=== PATIENT | male | born 1985 | race Caucasian/White ===

== ENCOUNTER → 2019-06-13 | Outpatient (CLI) | payer OTHER ==
[~2019-06-13] MED LIST: DOXYCYCLINE HY100 M3 PO; FLOMAX0.4 MG PO; GENVOYA TABLET1 EACH PO; HYDROCODONE-AP1 EAC6 PO; MEDROLDOSEPACK PO; NOHOMEMEDICATIONS; NORCO 5-325 TA1 EACH PO; ONDANSETRON HCL4 M2 PO; ONE DAILY COMP1 EAC2 PO; PROPECIA1 MG; PROTANDIM; ZOFRAN ODT4 MG PO; ZPAK PO
[2019-06-13 09:31] LABS: PROTIME 9.9 Seconds (9.3-11.4)
[2019-06-13 11:36] LABS: CSF GLUCOSE 60 mg/dL (40-70); CSF PROTEIN 39 mg/dL (15-45)
[2019-06-13 11:48] LABS: CSF CLARITY CLEAR; CSF COLOR COLORLESS; VOLUME 6 ml
[2019-06-13 12:19] LABS: CSF WBC 0 /mm3 (0-10)
[2019-06-13 12:20] LABS: CSF RBC 209 /mm3
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
[2019-06-16 14:09] LABS: CSF VDRL Non Reactive (Non Rea:<1:1)
[2019-06-17 05:07] LABS: SYPHILIS AB Reactive (Non Reactive)
--- NOTE | 2019-06-18 12:42 | EKG ---
[facility] [place] [address] ELECTROCARDIOGRAM REPORT Name: ZAIDA EDWARDS Room #: REG CLI [facility]#: [id number] Admission: 06/13/19 Attend Phys: Rashi Winslow MD Discharge: Date of : 81 Report #: [id number] THIS REPORT FOR: cc: Virgilio Marina MD, Steven A. MD Lundgren,Gael Schofield MD 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 06/13/19 1723 1119 1119 Gael Garland MD, [facility] /EPI
== END ==
LOC: RAD 07:31
PROVIDERS: Radiology Diagnostic Radiology; Specialist
DX: B20 Human immunodeficiency virus [HIV] disease (principal)

== ENCOUNTER 2020-11-09 13:06 | Emergency (ER) | payer BC ==
[~2020-11-09] VITALS: Ht 193 cm; Wt 90.7 kg
[2020-11-09 13:06] VITALS: BP 124/71
== END 2020-11-09 14:30 | disposition home or self-care (01) ==
LOC: ER 13:06
DX: M79.18 Myalgia, other site (principal); M79.602 Pain in left arm; M25.522 Pain in left elbow; M79.605 Pain in left leg; F17.210 Nicotine dependence, cigarettes, uncomplicated; Z89.119 Acquired absence of unspecified hand; Z79.2 Long term (current) use of antibiotics; Z79.899 Other long term (current) drug therapy; Z88.1 Allergy status to other antibiotic agents

== ENCOUNTER 2020-12-15 03:04 | Emergency (ER) | payer BC ==
[~2020-12-15] VITALS: Ht 193 cm; Wt 72.6 kg
[2020-12-15 04:18] LABS: WBC 6.9 thou/uL (4.0-11.0)
[2020-12-15 04:25] LABS: ABSOLUTE NEUTROPHILS 3.9 thou/uL (1.4-8.2); BASOPHILS 0.7 % (0.0-2.0); HEMATOCRIT 41.3 % (42.0-52.0); HEMOGLOBIN 13.9 gm/dL (14.0-18.0); LYMPHOCYTES 34.1 % (24.0-44.0); MCH 31.1 pg (26.0-34.0); MCHC 33.7 g/dL (28.0-37.0); MCV 92.3 fL (80.0-100.0); MONOCYTES 7.6 % (1.0-8.0); PLATELET COUNT 206 thou/uL (150-400); POLYS 56.6 % (36.0-66.0); RBC 4.47 mil/uL (4.50-6.00)
[2020-12-15 04:32] LABS: ANION GAP 12 mmol/L (7-16); BUN 16 mg/dL (7-18); CALCIUM 8.7 mg/dL (8.5-10.1); CHLORIDE 106 mmol/L (98-107); CO2 25 mmol/L (21-32); GLUCOSE 98 mg/dL (74-106); POTASSIUM 3.7 mmol/L (3.5-5.1); SODIUM 143 mmol/L (136-145)
[2020-12-15 04:41] LABS: ALBUMIN 3.9 g/dL (3.4-5.0); SGOT 14 U/L (15-37); SGPT 21 U/L (30-65); TOTAL BILIRUBIN 1.4 mg/dL (0.2-1.0); TOTAL PROTEIN 7.2 g/dL (6.4-8.2); TROPONIN-I <0.06 ng/mL (<0.06)
--- NOTE | 2020-12-15 07:11 | EKG ---
[place] [address] [facility] [place] [address] ELECTROCARDIOGRAM REPORT Name: ZAIDA EDWARDS Room #: REG TAMMY Cervantes#: [id number] Admission: 12/15/20 Attend Phys: Discharge: Date of : 81 Report #: [id number] 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 : 1985 Requested By: Pipo Olson Order Number: [id number] MD: August Samaniego Measurements Intervals [place] Rate: 59 P: 87 [place]: 178 QRS: 95 QRSD: 119 T: 77 QT: 436 QTc: 432 Interpretive Statements Sinus rhythm Nonspecific intraventricular conduction delay Nonspecific T abnrm, anterolateral leads Compared to ECG 06/13/2019 11:19:07 No significant changes Electronically Signed On 12-15-2020 7:11:38 CDT by August Samaniego [email or web address] <ELECTRONICALLY SIGNED> By: August Samaniego MD, [facility] 12/15/20 0711 0 0 August Samaniego MD, FACC /EPI
[2020-12-15 07:15] VITALS: BP 107/61
--- NOTE | 2020-12-15 08:22 | EKG ---
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: : 1985 Requested By: Pipo Olson Order Number: [id number] MD: Gael Garland Measurements Intervals [place] Rate: 87 P: 88 RI: 150 QRS: 93 QRSD: 115 T: 62 QT: 362 QTc: 436 Interpretive Statements Sinus rhythm Nonspecific intraventricular conduction delay Right ventricular conduction delay Compared to ECG 06/13/2019 11:19:07 No significant change was found Electronically Signed On 12-15-2020 8:22:33 CDT by Gael Garland [email or web address] <ELECTRONICALLY SIGNED> By: Gael Garland MD, [facility] 12/15/20 0822 2 0313 Gael Garland MD, FACC /EPI
== END 2020-12-15 07:15 | disposition home or self-care (01) ==
LOC: ER 03:04
PROVIDERS: Emergency Medicine
DX: R07.89 Other chest pain (principal); F17.210 Nicotine dependence, cigarettes, uncomplicated; Z21 Asymptomatic human immunodeficiency virus [HIV] infection status; Z79.899 Other long term (current) drug therapy; Z88.1 Allergy status to other antibiotic agents; Z88.8 Allergy status to other drugs, medicaments and biological substances